=== PATIENT | female | born 1955 | race Caucasian/White ===

== ENCOUNTER 2024-08-20 10:26 | Outpatient (CLI) | payer OTHER | END 2024-08-20 10:27 | disposition home or self-care (01) | LOC: CSHCT 10:26 | PROVIDERS: ATTEND Internal Medicine | DX: Z12.2 Encounter for screening for malignant neoplasm of respiratory organs (principal); F17.210 Nicotine dependence, cigarettes, uncomplicated; I25.10 Atherosclerotic heart disease of native coronary artery without angina pectoris; I25.84 Coronary atherosclerosis due to calcified coronary lesion; J44.9 Chronic obstructive pulmonary disease, unspecified; J98.4 Other disorders of lung | CPT/HCPCS: 71271 ==

== ENCOUNTER 2025-09-02 10:13 | Outpatient (CLI) | payer OTHER | END 2025-09-02 10:14 | disposition home or self-care (01) | LOC: CSHCT 10:13 | PROVIDERS: ATTEND Internal Medicine | DX: Z12.2 Encounter for screening for malignant neoplasm of respiratory organs (principal); F17.210 Nicotine dependence, cigarettes, uncomplicated | CPT/HCPCS: 71271 ==